=== PATIENT | male | born 1945 | race Caucasian/White ===

== ENCOUNTER 2017-04-14 11:43 | Emergency (ER) | payer SELFPAY ==
[2017-04-14 12:06] VITALS: BP 147/83; PULSE 70; RESP 16; TEMP 98.1; O2SAT 99
--- NOTE | 2017-04-14 12:40 | C.PDOC ---
History Of Present Illness 71 y/o male with past medical history of anxiety presents to the ED complaining of ringing in both ears (more in right ear than left)x a few months and bilateral hand pain x a few months. Denies ear pain, ear discharge or any further medical complaints. Time Seen by Provider: 04/14/17 11:59 Chief Complaint (Nursing): ENT Problem History Per: Patient History/Exam Limitations: no limitations Onset/Duration Of Symptoms: Other (several months) Current Symptoms Are (Timing): Still Present Past Medical History Reviewed: Historical Data, Nursing Documentation, Vital Signs Vital Signs: Last Vital Signs Temp 98.1 F 04/14/17 12:05 Pulse 70 04/14/17 12:05 Resp 16 04/14/17 13:22 BP 147/83 04/14/17 12:05 Pulse Ox 99 04/15/17 16:12 - [facility] TETANUS TOXOID ADMINIST (09/27/12) Family History: States: Unknown Family Hx - Social History Hx Tobacco Use: No Hx Alcohol Use: No Hx Substance Use: No - Immunization History Hx Tetanus Toxoid Vaccination: Yes (09/27/2012) Hx Influenza Vaccination: Yes Hx Pneumococcal Vaccination: No Review Of Systems ENT: Positive for: Other (Ringing from both ears). Negative for: Ear Pain, Ear Discharge Musculoskeletal: Positive for: Hand Pain (Bilateral hand pain) Skin: Negative for: Rash Neurological: Negative for: Weakness, Numbness Physical Exam - Physical Exam Appears: Well, Other (Mildly anxious) Skin: Normal Color, Warm, Dry Head: Atraumatic, Normacephalic Eye(s): bilateral: Normal Inspection, PERRL, EOMI Ear(s): Bilateral: Normal Nose: Normal Throat: Normal, No Erythema Neck: Supple Chest: Symmetrical, No Deformity Cardiovascular: Rhythm Regular, No Murmur Respiratory: No Decreased Breath Sounds, No Wheezing Gastrointestinal/Abdominal: Soft, No Tenderness Extremity: Normal ROM, Tenderness (bilateral hands and fingers, no erythema or warmth noted. ) Extremity: Bilateral: Atraumatic Pulses: Left Radial: Normal, Right Radial: Normal Neurological/Psych: Oriented x3, Normal Speech, Normal Cognition, Normal Motor, Normal Sensation ED Course And Treatment O2 Sat by Pulse Oximetry: 99 (RA) Pulse Ox Interpretation: Normal Medical Decision Making Medical Decision Making: Time: 12:00 Plan: Tylenol 650mg PO Scribe Attestation: Documented by Tanya Mcghee acting as a scribe for MAGDA Monet. Scribe Attestation: All medical record entries made by the Scribe were at my direction and personally dictated by me. I have reviewed the chart and agree that the record accurately reflects my personal performance of the history, physical exam, medical decision making, and the department course for this patient. I have also personally directed, reviewed, and agree with the discharge instructions and disposition. pt with tinnitus x months, d/c with med clinic f/u for ent referral and ortho f/ u Disposition Counseled Patient/Family Regarding: Diagnosis, Need For Followup - Disposition Referrals: [facility] [Outside] Disposition: HOME/ ROUTINE Disposition Time: 13:06 Condition: STABLE Additional Instructions: Por favor, mynor un seguimiento en la clnica mdica para detectar zumbidos en los odos y dolor en las gregg. Recomendar la derivacin a otorrinolaringlogo ( otorrinolaringlogo). [place] Tylenol danyell recetado para el dolor de mano. Prescriptions: Acetaminophen [Tylenol 325mg tab] 650 mg PO Q6 #30 tab Instructions: Tinnitus (ED), Arthritis (ED) Forms: [facility] (Nicaraguan), Gen Discharge Inst [place]araguan Print Language: [place] - Clinical Impression Clinical Impression: Tinnitus, Hand joint pain
== END 2017-04-14 13:15 | disposition home or self-care (01) ==
LOC: C.ER 11:43
DX: H93.13 Tinnitus, bilateral (principal); M25.542 Pain in joints of left hand; M25.541 Pain in joints of right hand